=== PATIENT | female | born 1985 | race Caucasian/White ===

== ENCOUNTER 2023-01-31 14:08 | Emergency (ER) | payer MEDICAID, SELFPAY ==
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
[2023-01-31 14:16] VITALS: BMI 25.4
[2023-01-31 14:17] VITALS: BP 154/99; PULSE 112; RESP 16; TEMP 37.2; O2SAT 98
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
[2023-01-31 15:21] VITALS: BP 149/92; PULSE 108; RESP 16; TEMP 36.8; O2SAT 98
--- NOTE | 2023-01-31 18:07 | PC.SOCIAL ---
Ortho Referral Referral message to ortho at this time. Clinic to contact patient with appt date/time.
== END 2023-01-31 15:23 | disposition home or self-care (01) ==
PROVIDERS: Emergency Provider Physician Assistant
DX: S49.92XA Unspecified injury of left shoulder and upper arm, initial encounter (principal); W51.XXXA Accidental striking against or bumped into by another person, initial encounter
CPT/HCPCS: 73030; 99283

== ENCOUNTER 2023-02-06 15:05 | Outpatient (CLI) | payer MEDICAID, SELFPAY | END 2023-02-06 15:06 | disposition home or self-care (01) | LOC: SPT 15:06 | PROVIDERS: Visit Provider Specialist | DX: Z46.89 Encounter for fitting and adjustment of other specified devices (principal); S49.92XD Unspecified injury of left shoulder and upper arm, subsequent encounter; S42.14 Fracture of glenoid cavity of scapula; S42.15 Fracture of neck of scapula; X58.XXXD Exposure to other specified factors, subsequent encounter | CPT/HCPCS: 97760; L3670 ==

== ENCOUNTER 2023-02-09 11:33 | Outpatient (CLI) | payer MEDICAID, SELFPAY ==
--- NOTE | 2023-02-09 11:45 | MR_ITS ---
WS: [id number] MRI LEFT SHOULDER NONCONTRAST TECHNIQUE: Sagittal T2, coronal T1, T2 and proton density imaging. Axial gradient PDE imaging. CLINICAL INFORMATION: fracture COMPARISON: Radiograph 01/31/2023 FINDINGS: Some images degraded by motion. Mild degenerative arthritis AC joint. Subacromial space is preserved. Mild subacromial spurring. Smal l joint effusion. Normal supraspinatus and infraspinatus. Normal teres minor. Fluid and edema in the subscapularis muscle belly. Distal subscapularis tendon appears intact. Partial tear of the subscapul felisa at the myotendinous junction. Bankart type lesion with bony Avulsion injury involving the anteroinferior glenoid with labral tear. Recommend correlation with recent anterior dislocation. No edema in the humeral head. Associated susp ected tear of the inferior glenohumeral ligament with laxity. Biceps tendon appears intact within the bicipital groove. Biceps labral anchor appears intact. IMPRESSION: 1. Avulsion fracture involving the anterior inferior glenoid labrum as seen on the recent radiograph with joint effusion. Associated anteroinferior labral tear. 2. Suspected associated tear of the inferior glenohumeral ligament. 3. No visualized Hill-Sachs lesion. 4. Subscapularis tendon distally appears intact. Partial tear at the myotendinous junction. 5. Biceps tendon appears intact within the bicipital groove.
== END 2023-02-09 11:34 | disposition home or self-care (01) ==
PROVIDERS: Visit Provider Specialist
DX: S42.142A Displaced fracture of glenoid cavity of scapula, left shoulder, initial encounter for closed fracture (principal); S42.152A Displaced fracture of neck of scapula, left shoulder, initial encounter for closed fracture; S46.812A Strain of other muscles, fascia and tendons at shoulder and upper arm level, left arm, initial encounter; X58.XXXA Exposure to other specified factors, initial encounter
CPT/HCPCS: 73221

== ENCOUNTER → 2023-03-30 12:20 | Outpatient (BNVA) | payer MEDICAID, SELFPAY | PROVIDERS: Visit Provider Nurse Practitioner Women's Health | DX: Z12.4 Encounter for screening for malignant neoplasm of cervix (principal); Z11.3 Encounter for screening for infections with a predominantly sexual mode of transmission | CPT/HCPCS: 86592; 86803; 87340; 87491; 87591; 87624; 87806 ==